=== PATIENT | male | born 1960 | race Caucasian/White ===

== ENCOUNTER 2017-03-09 12:49 | Emergency (ER) | payer OTHER ==
[2017-03-09] MEDS ORDERED: IBUPROFEN 600 MG TAB PO ONE (13:17)
--- NOTE | 2017-03-09 13:29 | EDPHY ---
General Narrative: CHIEF COMPLAINT: Right knee pain HISTORY OF PRESENT ILLNESS: Patient complains of right knee pain that started around 9:00 a.m. this morning. This happened while exiting the ski lift. He says "I went one way, and my skis went the other." He describes an external rotation of the knee that he was "stuck in" for several minutes. He was held by the left liquefaction plant operator. He is able to bear weight but with significant pain. This pain is worse when he attempts to extend the knee. It is in the entire right knee. Does radiate. No pain in the right hip. No pain in the right ankle or foot. Better with use of crutches and a soft knee brace that was on the left knee. No head strike or fall. No chest, back or abdominal pain or injuries. No other associated complaints or modifying factors. ESTABLISHED ORTHOPEDIST: None REVIEW OF SYSTEMS: Ten systems reviewed and are negative unless otherwise noted in the HPI PAST MEDICAL HISTORY: No ongoing medical problems PAST SURGICAL HISTORY: Tonsillectomy, cholecystectomy SOCIAL HISTORY: Nonsmoker. No alcohol. No drug use. 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 Pupils are equal, round and reactive Cardiovascular: Pulses normal throughout. Symmetric DP pulses 2+. Symmetric PT pulses 2+. Brisk cap refill Neurological: A&O, sensory symmetric, strength symmetric. No footdrop. Patellar reflex on the right is 2+ Skin: Warm and dry, no rash. No lacerations, abrasions or contusions Extremities: Tenderness in the entire right knee. No crepitus or deformity. Patellar tendon intact. Special test not performed due to pain. Range of motion of the right ankle symmetric to the left. There is no bony tenderness of the right calcaneus. Psychiatric: Mood and affect normal DIFFERENTIAL DIAGNOSES: Including but not limited to sprain, strain, fracture, dislocation MDM: 1:25 p.m. Acute sprain to the right knee. Possible fracture given his mechanism. I have ordered x-ray for further delineation. He is in no acute distress. 2:30 p.m. X-ray suspicious for tibial plateau fracture as read by me was confirmed as so by radiologist. I will consult Orthopedics. 2:55 p.m. Case discussed with orthopedist Dr. Deras. He is requesting CT scan of the extremity, straight leg immobilizer, I would like to see the patient in his clinic on Friday. I have discussed this with the patient and they are agreeable with this. CT scan ordered. 3:45 p.m. Contacted by radiologist Dr. Montaño. CT scan results discussed. Confirms lateral tibial plateau fracture with a posterior involvement as well. Patient has been discharged home at this time with a straight leg knee immobilizer on the right lower extremity. We discussed strict nonweightbearing precautions. We discussed contacting orthopedist tomorrow morning for outpatient management of this, involving possibility of surgery. We discussed pain management with prescription Percocet as needed. Place a discussed ED precautions. The patient and his spouse are comfortable this plan. Discharged in stable condition. ED Precautions: Worsening pain. Erythema, edema, cyanosis, pallor, paresthesia or anesthesia. - Diagnostics Imaging Results: Imaging Impressions Knee X-Ray 03/09/17 13:24 Impression: Concavity of the lateral tibial plateau with a large joint effusion suspicious for an impaction injury. If symptoms persist and clinical suspicion warrants, consider MRI. Extremity CT 03/09/17 14:56 Impression: Impaction injury of the lateral tibial plateau, with a comminuted nondisplaced fracture of the posterior lateral tibial plateau. Findings discussed with Peewee Ochoa PA-C, on March 09, 2017 at 1533. - History Smoking Status: Former smoker - Objective Vital Signs: Initial Vital Signs Temperature (C) 98.6 F 03/09/17 13:07 Heart Rate 105 H 03/09/17 13:07 Respiratory Rate 18 03/09/17 13:07 Blood Pressure 135/83 H 03/09/17 13:07 O2 Sat (%) 95 03/09/17 13:07 O2 Delivery Mode Room Air Allergies/Adverse Reactions: venom-wasp [wasp venom] Allergy (Verified 10/27/14 15:17) wasp Allergy (Uncoded 10/27/14 15:17) Home Medications: Medication Instructions Recorded oxyCODONE HCL/ACETAMINOPHEN 1 each PO Q4-6PRN PRN #15 tablet 03/09/17 [Percocet 5-325 mg Tablet] Medications Given: Discontinued Medications Ibuprofen (Motrin) 600 mg PO EDNOW ONE Stop: 03/09/17 13:18 Last Admin: 03/09/17 13:20 Dose: 600 mg Departure - Departure Disposition: Home, Routine, Self-Care Clinical Impression: Closed fracture of lateral portion of right tibial plateau Qualifiers: Encounter type: initial encounter Qualified Code(s): S82.121A - Displaced fracture of lateral condyle of right tibia, initial encounter for closed fracture Condition: Good Instructions: Leg Fracture (ED) Additional Instructions: 1. Strict nonweightbearing until seen by Orthopedics for definitive care 2. Contact orthopedist tomorrow morning for follow-up on Friday 3. ED precautions as discussed 4. Pain medication as prescribed as needed Referrals: Gabrielle Deras MD [Medical Doctor] - As per Instructions Prescriptions: oxyCODONE HCL/ACETAMINOPHEN [Percocet 5-325 mg Tablet] 1 each PO Q4-6PRN PRN # 15 tablet PRN Reason: Pain, Breakthrough
[2017-03-09 15:48] VITALS: BP 126/63; PULSE 78; RESP 16; TEMP 98.4; O2SAT 96
== END 2017-03-09 15:46 | disposition home or self-care (01) ==
DX: S82.121A Displaced fracture of lateral condyle of right tibia, initial encounter for closed fracture (principal); Z87.891 Personal history of nicotine dependence; X50.1XXA Overexertion from prolonged static or awkward postures, initial encounter; Y93.89 Activity, other specified